=== PATIENT | female | born 1965 | race Caucasian/White ===

== ENCOUNTER → 2017-11-20 | Outpatient (REF) | payer MEDICARE, MEDICAID ==
[2016-10-02 16:16] VITALS: BMI 35.5
[~2017-11-20] MED LIST: ACE325 PO; ACET-2007 PO; ACET-2031 PO; AMA100 PO; AMAN100T4 PO; ASPI-1064 PO; ASPI81TA94 PO; ATOR10TA24 PO; ATOR20TA22 PO; BAC10 PO; BACL-1 PO; BACL-51 PO; BIOT1TAB12 PO; BISA10SU66 PR; CALC-18 PO; CALC-652 PO; CALC500T42 PO; CEFU500T50 PO; CEPH-13 PO; CEPH500C24 PO; CHOL200074 PO; CIP500 PO; CIPR-214 PO; CIPR-215 PO; CIPR-345 PO; CRAN500T2 PO; CYAN100071 SL; DARI15TA5 PO; DEXL60CA6 PO; DIA5 PO; ELETR40PT PO; FING0.5C2 PO; FIO PO; FLU20 PO; GUAI600T57 PO; HYDR-4309 PO; HYDR25CA PO; HYDR2TAB74 PO; IBUP-1618 PO; INT1APT SQ; LEVO-85 PO; LEVO750T27 PO; LEVO750T44 PO; LISI-362 PO; LISI20TA29 PO; LOR5 PO; LOR5/325 PO; LORA-1456 PO; LORA-802 PO; MEDR10TA65 PO; NAPR220C12 PO; NAT300I IV; OXYB10TA21 PO; OXYC-865 PO; PANT40TA65 PO; POTA20TA94 PO; SERT-177 PO; SERT-184 PO; SUMA50TA35 PO; TOLT2TAB5 PO; TRIA-20 PO; TRIA1CAP86 PO; VER40 PO; WARF-12 PO; [UNRECOGNIZED DRUG - CODE] IT; [UNRECOGNIZED DRUG - OTHER]; [UNRECOGNIZED DRUG - OTHER] SC
== END ==
LOC: ZZSENDIN 22:01
PROVIDERS: ATTEND Psychiatry & Neurology Neurology
DX: R79.89 Other specified abnormal findings of blood chemistry (principal)
CPT/HCPCS: 82040; 82247; 82248; 84075; 84155; 84450; 84460

== ENCOUNTER → 2017-12-26 | Outpatient (REF) | payer MEDICARE, MEDICAID ==
[2016-10-02 16:16] VITALS: BMI 35.5
== END ==
LOC: ZZSENDIN 16:31
PROVIDERS: ATTEND Urology
DX: N39.0 Urinary tract infection, site not specified (principal)
CPT/HCPCS: 87088

== ENCOUNTER → 2018-05-29 | Outpatient (REF) | payer MEDICARE, MEDICAID ==
[2016-10-02 16:16] VITALS: BMI 35.5
== END ==
LOC: ZZSENDIN 15:21
PROVIDERS: ATTEND Family Medicine
DX: N39.0 Urinary tract infection, site not specified (principal); B96.89 Other specified bacterial agents as the cause of diseases classified elsewhere
CPT/HCPCS: 81001; 87077; 87088; 87186

== ENCOUNTER → 2018-07-22 | Outpatient (REF) | payer MEDICARE, MEDICAID ==
[2016-10-02 16:16] VITALS: BMI 35.5
[2018-07-22 10:35] LABS: PLATELET COUNT, AUTOMATED 182 K/uL (150-450)
== END ==
LOC: ZZSENDIN 09:44
PROVIDERS: ATTEND Psychiatry & Neurology Neurology
DX: G35 Multiple sclerosis (principal); Z79.899 Other long term (current) drug therapy
CPT/HCPCS: 82040; 82247; 82310; 82374; 82435; 82565; 82947; 84075; 84132; 84155; 84295; 84450; 84460; 84520; 85025

== ENCOUNTER → 2018-12-22 | Outpatient (CLI) | payer MEDICARE, MEDICAID ==
[2016-10-02 16:16] VITALS: BMI 35.5
[~2018-12-22] MED LIST changes: -HYDR-4309 PO; +HYDR-653 PO
--- NOTE | 2018-12-22 11:29 | RADIOLOGY IMAGING REPORT ---
FACILITY: [facility] - [place] PATIENT NAME: Anne Penn : 1965 MR: [id number] V: [id number] EXAM DATE: ORDERING PHYSICIAN: EVENS DAO TECHNOLOGIST: Location: [facility] [place] Patient: Anne Penn : 1965 Visit/Account:[id number] Date of Sevice: 12/22/2018 KIDNEYS HISTORY: History of UTI COMPARISON: None. FINDINGS: Kidneys: Right kidney- 10.17 cm in length with normal parenchymal thickness and echogenicity. Left kidney- 7.97 cm in length with a 2.6 cm simple cyst in the upper pole. There is no suspicious m ass or hydronephrosis.. Normal resistive indices are seen bilaterally. Uniform and symmetric blood flow in each kidney by Doppler ultrasound. Hydronephrosis: None. Bladder: Unremarkable. Abdominal aorta and IVC: Patent by Doppler ultrasound. IMPRESSION: Normal right and left renal ultrasound. Report Dictated By: Derick Merlos at 12/22/2018 11:22 AM Report E-Signed By: Derick Merlos at 12/22/2018 11:24 AM WSN:[id number]
== END ==
LOC: US 01:08
PROVIDERS: ATTEND Urology
DX: N31.9 Neuromuscular dysfunction of bladder, unspecified (principal); Z87.440 Personal history of urinary (tract) infections
CPT/HCPCS: 36415; 76705; 82565

== ENCOUNTER 2019-01-01 21:15 | Inpatient (IN) | payer MEDICARE, MEDICAID ==
[~2019-01-01] VITALS: Ht 152.4 cm; Wt 95.3 kg
[~2019-01-01 21:15] MED LIST changes: -BACL50AM IT; -GUAI1TBM PO; -MICO1COM TP; -OXYB15TA14 PO; -SUMA50TA34 PO; -TRAM-420 PO; -TRIA-19 PO; -[UNRECOGNIZED DRUG - CODE] PO; -[UNRECOGNIZED DRUG - OTHER] PR
--- NOTE | 2019-01-01 21:19 | ER Report ---
History and Physical Time Seen By MD: 21:16 HPI/ROS CHIEF COMPLAINT: Altered mental status, fever HISTORY OF PRESENT ILLNESS: 53-year-old female with a history of MS and a chronic indwelling Quiroz catheter was brought in by EMS from home with a home care nurse found her altered with a fever. She did not recognize the home care nurse who knows her. Patient was seen in wound care clinic and Dr. De La Cruz yesterday for infected. Pressure sores on her buttocks area. Patient was noted to be hypoxic by EMS with a pulse ox of 84% on room air. She required 4 L to maintain saturations in the normal range. Her mouth appears grossly dry. Patie nt appears to responding appropriately now. Patient states he has pressure sores on her buttocks. She was rolled over to visualize the area. There are dressings intact with purulent foul-smelling drainage. Dr. De La Cruz's note from yesterday was reviewed. He did anticipate trying to admit her. Unfortunately, the hospital was a capacity. She was to return tomorrow for reevaluation and consideration of admission. REVIEW OF SYSTEMS: Respiratory: As above Cardiovascular: No chest pain, no palpitations. Gastrointestinal: No vomiting, no abdominal pain. Musculoskeletal: As above Allergies: Coded Allergies: latex (Verified Allergy, Intermediate, HIVES, 01/01/19) Home Meds Active Scripts Sertraline Hcl (SERTRALINE HCL) 50 Mg Tablet, 150 MG PO QDAY, #90 TAB Prov:PASHA CRISTINA MD 03/19/16 Triamterene/Hydrochlorothiazid (TRIAMTERENE-HCTZ 37.5-25 MG TB) 1 Each Tablet, 1 EACH PO QDAY, #30 TAB Prov:PASHA CRISTINA MD 03/19/16 Lisinopril (LISINOPRIL) 10 Mg Tablet, 10 MG PO QDAY, #30 TAB Prov:PASHA CRISTINA MD 03/19/16 Fingolimod (GILENYA) 0.5 Mg Cap, 0.5 MG PO QDAY, #30 CAP Prov:PASHA CRISTINA MD 02/29/16 Loratadine (CLARITIN) 10 Mg Tablet, 10 MG PO DAILY, #30 TAB Prov:PASHA CRISTINA MD 02/29/16 Cholecalciferol (Vitamin D3) (VITAMIN D-3) 2,000 Unit Capsule, 2000 UNIT PO DAILY, #30 CAPSULE Prov:PASHA CRISTINA MD 02/29/16 Cranberry Extract (Cranberry) 500 Mg Tablet, 1000 MG PO DAILY, #60 TAB Prov:PASHA CRISTINA MD 02/29/16 Reported Medications Tramadol Hcl (TRAMADOL HCL) 50 Mg Tablet, 50 MG PO Q6H PRN for PAIN, TAB 01/02/19 Dexlansoprazole (DEXILANT) 60 Mg Dilan.mp, 60 MG PO QDAY 01/02/19 Miconazole/Cleanser 17 On Wipe (Miconazole 3 Combo Pack) 4 % (200 Mg)-2 % (9 Gram) Kit, 1 MARLENA TP BID PRN for RASH 01/02/19 Baclofen (LIORESAL INTRATHECAL) 50 Mcg/1 Ml Ampul, 39.81 MCG IT QDAY 01/02/19 Docusate Sodium (ENEMEEZ) 283 Mg Supp, 283 MG [place] Mon,Wed,Sat, SUPP 01/02/19 Guaifenesin/Dextromethorphan (MUCINEX DM ER 1,200-60 MG TAB) 1 Each Tbmp.12hr, 1 EACH PO Q12H 01/02/19 Sumatriptan Succinate (IMITREX) 50 Mg Tablet, 50 MG PO Q2H PRN for MIGRAINE 01/02/19 Polyethylene Glycol 1450 (POLYETHYLENE GLYCOL 1450) 10,000 Gm Powder, 17 GM PO QDAY 01/02/19 Oxybutynin Chloride (OXYBUTYNIN CHLORIDE ER) 15 Mg Tab.er.24, 15 MG PO QDAY, TAB.SA 01/02/19 Baclofen (BACLOFEN) 10 Mg Tablet, 30 MG PO TID, #30 TAB 01/02/19 Atorvastatin Calcium (LIPITOR) 20 Mg Tablet, 1 TAB PO QHS, TAB 01/02/19 Discontinued Reported Medications Triamterene/Hydrochlorothiazid (MAXZIDE 37.5 MG-25 MG TABLET) 1 Each Tablet, 1 EACH PO QDAY 01/02/19 Oxybutynin Chloride (DITROPAN XL) 10 Mg Tab.er.24, 20 MG PO QHS, TAB 03/13/16 Guaifenesin (MUCINEX) 600 Mg Tablet.er, 600 MG PO BID 03/13/16 Baclofen (Lioresal Intrathecal) 500 Mcg/Ml/Kit Kit, 300 MCG IT PT ON BACLOFEN PUMP 11/20/10 Discontinued Scripts Levofloxacin 750 Mg Tab (LEVOFLOXACIN 750 MG TAB) 750 Mg Tablet, 750 MG PO QDAY@10, #2 TAB Prov:PASHA CRISTINA MD 10/08/16 Pantoprazole Sodium (PANTOPRAZOLE SODIUM) 40 Mg Tablet.dr, 40 MG PO QDAY, #30 TAB Prov:PASHA CRISTINA MD 03/19/16 Bisacodyl (BISAC-EVAC) 10 Mg Supp.rect, 10 MG [place] PRN PRN for CONSTIPATION, #30 SUPP.RECT Prov:PASHA CRISTINA MD 03/19/16 Baclofen (BACLOFEN) 10 Mg Tablet, 30 MG PO TID PRN for muscle spasm, #90 TAB Prov:PASHA CRISTINA MD 03/19/16 Atorvastatin Calcium (LIPITOR) 10 Mg Tablet, 20 MG PO QHS, #30 TAB Prov:PASHA CRISTINA MD 03/19/16 Past Medical/Surgical History Multiple sclerosis, suprapubic catheter, admission in 2015 for urinary tract in fection and aspiration pneumonia, hypertension. Past surgical history suprapubic catheter Reviewed Nurses Notes: Yes Old Medical Records Reviewed: Yes Hx Smoking: Yes Smoking Status: Former Smoker Exposure to Second Hand Smoke?: No Hx Substance Use Disorder: No Hx Alcohol Use: No Constitutional Vital Sign - Last 24 Hours 01/01/19 01/01/19 01/01/19 01/01/19 21:18 21:22 21:30 21:38 Temp 99.2 Pulse 103 104 Resp 20 18 B/P (MAP) 104/64 104/64 (77) 107/59 (75) Pulse Ox 90 89 O2 Delivery Nasal Cannula 01/01/19 01/01/19 01/01/19 01/01/19 21:45 21:50 22:00 22:05 Pulse 103 102 97 Resp 8 29 26 B/P (MAP) 103/57 (72) Pulse Ox 91 92 93 O2 Flow Rate 5.0 01/01/19 01/01/19 01/01/19 01/01/19 22:20 22:30 22:35 22:50 Pulse 97 97 96 Resp 15 25 20 B/P (MAP) 95/48 (64) Pulse Ox 95 94 94 2/2801/01/19 01/01/19 01/01/19 22:55 23:00 23:10 23:25 Pulse 97 95 97 Resp 25 24 27 B/P (MAP) 91/48 (62) Pulse Ox 96 93 92 Physical Exam General Appearance: The patient is alert, has no immediate need for airway protection and no current signs of toxicity. Vital signs stable, low-grade fever 99.0 HEENT: Pupils equal and round no injection. TMs normal, oropharynx without redness or exudate Respiratory: Chest is non tender, lungs are clear to auscultation. Cardiac: regular rate and rhythm, no murmur Gastrointestinal: Abdomen is soft and non tender, no masses, bowel sounds normal. Musculoskeletal: Neck: Neck is supple and non tender. Extremities have full range of motion and are non tender. Skin: Gross decubitus deep ulcers noted on the buttocks region. DIFFERENTIAL DIAGNOSIS: After history and physical exam differential diagnosis was considered for altered mental status including but not limited to hypog lycemia, infectious process, electrolyte abnormality, head injury and intoxicants, infected decubitus ulcers Cellulitis, pneumonia, aspiration pneumonia Medical Decision Making Data Points Result Diagram: 01/02/19 0645 01/02/19 0540 Laboratory Hematology Test 01/01/19 21:30 01/01/19 21:34 01/01/19 21:45 Urine Color Yellow Urine Clarity Turbid Urine pH 5.0 pH (4.8-9.5) Urine Specific [place] 1.020 Urine Protein 30 mg/dL (NEGATIVE) Urine Glucose (UA) Negative mg/dL (NEGATIVE) Urine Ketones Negative mg/dL (NEGATIVE) Urine Blood Moderate (NEGATIVE) Urine Nitrite Positive (NEGATIVE) Urine Bilirubin Negative (NEGATIVE) Urine Urobilinogen 4.0 mg/dL (0.2-1.9) Urine Leukocyte Esterase Large (NEGATIVE) Urine RBC 5 /HPF (0-2/HPF) Urine WBC 161 /HPF (0-5/HPF) Urine Squamous Epithelial Cells Many /LPF (NONE-FEW) Urine Amorphous Crystals Many /HPF Urine Bacteria Many /HPF (NONE-FEW) Urine Mucus Moderate /HPF (NONE-FEW) Influenza Virus Type A (PCR) Negative (NEGATIVE) Influenza Virus Type B (PCR) Negative (NEGATIVE) Lactate 0.9 mmol/L (0.7-2.1) Chemistry Test 01/01/19 21:30 01/01/19 21:34 01/01/19 21:45 Urine Color Yellow Urine Clarity Turbid Urine pH 5.0 pH (4.8-9.5) Urine Specific [place] 1.020 Urine Protein 30 mg/dL (NEGATIVE) Urine Glucose (UA) Negative mg/dL (NEGATIVE) Urine Ketones Negative mg/dL (NEGATIVE) Urine Blood Moderate (NEGATIVE) Urine Nitrite Positive (NEGATIVE) Urine Bilirubin Negative (NEGATIVE) Urine Urobilinogen 4.0 mg/dL (0.2-1.9) Urine Leukocyte Esterase Large (NEGATIVE) Urine RBC 5 /HPF (0-2/HPF) Urine WBC 161 /HPF (0-5/HPF) Urine Squamous Epithelial Cells Many /LPF (NONE-FEW) Urine Amorphous Crystals Many /HPF Urine Bacteria Many /HPF (NONE-FEW) Urine Mucus Moderate /HPF (NONE-FEW) Influenza Virus Type A (PCR) Negative (NEGATIVE) Influenza Virus Type B (PCR) Negative (NEGATIVE) Lactate 0.9 mmol/L (0.7-2.1) Urinalysis Test 01/01/19 21:30 Urine Color Yellow Urine Clarity Turbid Urine pH 5.0 pH (4.8-9.5) Urine Specific [place] 1.020 Urine Protein 30 mg/dL (NEGATIVE) Urine Glucose (UA) Negative mg/dL (NEGATIVE) Urine Ketones Negative mg/dL (NEGATIVE) Urine Blood Moderate (NEGATIVE) Urine Nitrite Positive (NEGATIVE) Urine Bilirubin Negative (NEGATIVE) Urine Urobilinogen 4.0 mg/dL (0.2-1.9) Urine Leukocyte Esterase Large (NEGATIVE) Urine RBC 5 /HPF (0-2/HPF) Urine WBC 161 /HPF (0-5/HPF) Urine Squamous Epithelial Cells Many /LPF (NONE-FEW) Urine Amorphous Crystals Many /HPF Urine Bacteria Many /HPF (NONE-FEW) Urine Mucus Moderate /HPF (NONE-FEW) Microbiology Microbiology Date/Time Source Procedure Growth Status 01/01/19 22:39 Blood Peripheral Draw Blood Culture - Preliminary NO GROWTH AFTER 1 DAY, REINCUBATED Resulted 01/01/19 21:45 Blood Peripheral Draw Blood Culture - Preliminary NO GROWTH AFTER 1 DAY, REINCUBATED Resulted 01/01/19 21:30 Quiroz Catheter Urine Urine Culture - Preliminary Gram Negative Cheikh Resulted EKG/Imaging EKG Interpretation 12 lead EK Rhythm: Sinus tachycardia, rate 103 [place]: normal QRS: normal ST segments: normal, comparison to previous EKG dated 10/01/16, no significant change Imaging X-ray: Angle view portable chest x-ray was obtained. I viewed the images myself on the PACS system. My interpretation of the images is: There is a hazy faint right lower lobe infiltrate. Comparison to previous chest x-ray from 2016. There was no previous scarring or infiltrate noted.. The radiologist interpretation had no clinically significant variation from this interpretation. ED Course/Re-evaluation Clinical Indication for ER IV: Hydration, IV Access ED Course Patient was admitted to an examination room. H&P was done. The differential diagnoses was considered. Patient with infected decubitus ulcers. Patient also with a infiltrate in the right lower lobe and mild hypoxia. Patient with mental status changes secondary to the hypoxia. She improved with oxygenation. On arrival she was alert and oriented 3. Patient's white blood cell count was mildly elevated 12,000. There was a left shift on the differential. 01/01/2019 10:57:[address] Nair. Gen. Surgery on-call, who accepts patient for admission and initiation of IV anabolic therapy. Decision to Disposition Date: Jan 01, 2019 Decision to Disposition Time: 22:50 Depart Departure Latest Vital Signs Vital Signs Date Time Temp Pulse Resp B/P (MAP) Pulse Ox O2 Delivery O2 Flow Rate FiO2 01/01/19 23:25 97 27 92 01/01/19 23:00 91/48 (62) 01/01/19 21:50 5.0 01/01/19 21:18 99.2 Nasal Cannula Impression: Primary Impression: Infected decubitus ulcer Additional Impressions: Multiple sclerosis Right lower lobe pneumonia Condition: Improved Disposition: Admitted from ER Referrals: SHRUTHI PRESTON DO (PCP) Problem Qualifiers Primary Impression: Infected decubitus ulcer Pressure injury stage: stage 2 Qualified Codes: L89.92 - Pressure ulcer of unspecified site, stage 2; L08.9 - Local infection of the skin and sub cutaneous tissue, unspecified Additional Impressions: Right lower lobe pneumonia Pneumonia type: due to unspecified organism Qualified Codes: J18.1 - Lobar pneumonia, unspecified organism SAROJ VARGAS DO Jan 01, 2019 21:18
[2019-01-01] MEDS ORDERED: NS(*) 0.9% 1000 ML BAG 1,000 ML IV ONE (21:20)
--- NOTE | 2019-01-01 21:50 | EKG ---
FACILITY: [facility] - [place] PATIENT NAME: SINCERE SOTOMAYOR : [id number] MR: [id number] V: [id number] EXAM DATE: ORDERING PHYSICIAN: SAROJ VARGAS TECHNOLOGIST: ISAI Javier Reason : Blood Pressure : / mmHG Vent. Rate : 103 BPM Atrial Rate : 103 BPM P-R Int : 136 ms QRS Dur : 078 ms QT Int : 336 ms P-R-T Axes : 059 038 067 degrees QTc Int : 440 ms Sinus tachycardia Otherwise normal ECG When compared with ECG of 01-OCT-2016 16:51, Criteria for Inferior infarct are no longer present Confirmed by REENA CHUA ([id number]) on 01/02/2019 6:35:20 AM Referred By: Confirmed By:REENA CHUA
[2019-01-01 22:02] LABS: PLATELET COUNT, AUTOMATED 234 K/uL (150-450)
--- NOTE | 2019-01-01 22:15 | RADIOLOGY IMAGING REPORT ---
FACILITY: [facility] - [place] PATIENT NAME: Anne Penn : 1965 MR: [id number] V: [id number] EXAM DATE: ORDERING PHYSICIAN: SAROJ VARGAS TECHNOLOGIST: Location: [facility] Patient: Anne Penn : 1965 Visit/Account:[id number] Date of Sevice: 01/01/2019 CHEST SINGLE AP Indication: Fever.. Comparison: 10/07/2016. Findings: Cardiomediastinal silhouette and pulmonary vessels within normal limits. Mild hazy opacity seen in the right lower lobe above the right hemidiaphragm. Mild scarring again see n in the left lower lobe. The remaining lung champion are clear. No pneumothorax or pleural effusion. No nodule. Upper abdomen is unremarkable. No acute bony abnormality. IMPRESSION: 1. Mild hazy opacity seen in the right lower lobe could be secondary to atelectasis or early infiltra te. Report Dictated By: Salvador Restrepo at 01/01/2019 10:09 PM Report E-Signed By: Salvador Restrepo at 01/01/2019 10:11 PM WSN:[id number]
[2019-01-01 23:58] VITALS: BP 105/53
[2019-01-02] MEDS ORDERED: LR(*) 1000 ML BAG 1,000 ML IV PRN (00:13)
[2019-01-02] MEDS ORDERED: ONDANSETRON 4 MG/2 ML VIAL IVP PRN (00:15)
[2019-01-02] MEDS ORDERED: PIPERACILLIN/TAZO*3.375GM VIAL 3.375 GM ONE (00:29)
[2019-01-02] MEDS ORDERED: VANCOMYCIN 1 GM ADDVIAL ONE ×2 (00:29→01:18)
[2019-01-02] MEDS ORDERED: NS(*) 0.9% 100 ML ADDVANT BAG 100 ML ONE (00:30)
[2019-01-02] MEDS ORDERED: NS(*) 0.9% 250 ML ADDVAN BAG 250 ML ONE ×2 (00:30→01:18)
[2019-01-02] MEDS ORDERED: NS 0.9% IV ONE (01:50)
[2019-01-02] MEDS ORDERED: VANCOMYCIN IV ONE (01:50)
[2019-01-02] MEDS ORDERED: VANCOMYCIN 1 GM VIAL IVPB ONE (02:00)
[2019-01-02] MEDS ORDERED: PIPERACILLIN/TAZO*3.375GM VIAL 3.375 GM in NS(*) 0.9% 100 ML ADDVANT BAG 100 ML IVPB SCH ×4 (03:00→09:00)
[2019-01-02 03:14] VITALS: BP 104/45
[2019-01-02] MEDS: ALBUTEROL/IPRATROPIUM 3 ML NEB NEB SCH ×3 (05:16→18:18)
[2019-01-02 07:10] LABS: PLATELET COUNT, AUTOMATED 173 K/uL (150-450)
[2019-01-02 08:08] VITALS: BP 95/49
[2019-01-02] MEDS ORDERED: FLUSH 10 ML SYR IVP PRN (08:55)
[2019-01-02] MEDS ORDERED: BISACODYL 5 MG TABEC PO PRN (08:55)
[2019-01-02] MEDS ORDERED: VANCOMYCIN 1 GM VIAL IVPB SCH ×2 (09:00→12:00)
[2019-01-02] MEDS: CRANBERRY EXTRACT 1 EACH CAP 1 EACH CAP PO SCH (09:00)
[2019-01-02] MEDS: FINGOLIMOD 0.5 MG PO SCH ×2 (09:00→22:08)
[2019-01-02] MEDS: IMIPENEM/CILASTA(*) 500MG VIAL 400 MG in NS(*) 0.9% 100 ML BAG 100 ML IVPB SCH ×3 (09:28→22:07)
[2019-01-02 09:44] VITALS: Ht 152.4 cm; Wt 95.3 kg
[2019-01-02] MEDS ORDERED: MICO1COM TP (10:27)
[2019-01-02] MEDS ORDERED: SUMA50TA34 PO (10:27)
[2019-01-02] MEDS ORDERED: ATOR20TA22 PO (10:27)
[2019-01-02] MEDS ORDERED: [UNRECOGNIZED DRUG - CODE] PO (10:27)
[2019-01-02] MEDS ORDERED: OXYB15TA14 PO (10:27)
[2019-01-02] MEDS ORDERED: BACL-1 PO (10:27)
[2019-01-02] MEDS ORDERED: BACL50AM IT (10:27)
[2019-01-02] MEDS ORDERED: GUAI1TBM PO (10:27)
[2019-01-02] MEDS ORDERED: DEXL60CA6 PO (10:27)
[2019-01-02] MEDS ORDERED: TRIA-19 PO (10:27)
[2019-01-02] MEDS ORDERED: [UNRECOGNIZED DRUG - OTHER] PR (10:27)
[2019-01-02] MEDS: PANTOPRAZOLE SOD 40 MG TABEC PO SCH (10:28)
[2019-01-02] MEDS: LORATADINE 10 MG TAB PO SCH (10:28)
[2019-01-02] MEDS: NYSTATIN 100,000 U/GM PWD 15GM TP SCH ×2 (10:28→22:09)
[2019-01-02] MEDS: guaiFENesin 600 MG TABCR PO SCH ×2 (10:28→22:07)
[2019-01-02] MEDS: TRIAMTERENE/HCTZ 37.5-25MG CAPSULE PO SCH (10:28)
[2019-01-02] MEDS: CHOLECALCIFEROL 1000 UNIT TAB PO SCH (10:31)
[2019-01-02] MEDS: ENOXAPARIN 40 MG/0.4ML SYR SC SCH (10:32)
[2019-01-02] MEDS: SERTRALINE HCL 50 MG TAB PO SCH (10:32)
[2019-01-02 10:34] VITALS: BP 101/50
[2019-01-02] MEDS: LISINOPRIL 10 MG TAB PO SCH (10:34)
--- NOTE | 2019-01-02 11:56 | Medical Nutrition Therapy ---
Nutrition Anthropometrics Height (Inches): 60.00 Height (Calculated Centimeters: 152.483397 Weight (Pounds): 210 Weight (Calculated Kilograms): 95.481 Brandon Nutrition Score: Probably Inadequate Brandon Nutrition Risk Score: 12 Dietary Referral Nutrition Risk Factors: Stg 2-4 Press Ulcer, Non-Healing Wound Nutrition Risk Comment: Physical Findings Physical Appearance: Morbidly Obese 40+ Skin Appearance Skin Appearance: Edema Edema Location Modifier: Edema Location: Type of Edema: Degree of Edema: Gastrointestinal Symptoms GI Symtoms: Tube Present: Bowel Sounds: Recent Bowel Pattern: Stool Characteristics: Nutritional Diagnosis Nutritional Risk Acuity 2: Abcess/Non-Healing Wound Nutritional Risk Acuity 3: Morbid Obesity Past Medical History: HX of Recurrent UTI, Multiple sclerosis, Neurogenic bladder, Suprapubic catheter, HTN, depression, hypercholesterolemia, chronic pressure sore Nutritional Acuity: 2-Moderate Nutrition Diagnosis: Increased Nutrient Needs Nutrition Etiology: Physiological Causes Nutrition Problem/Etiology/Sym: Increased nutrient needs physiological causes as evidenced by non-healing wounds and decreased protein (5.8) lab values. Energy Requirement: 2104 (MSJ, 1.1 TEF, 1.3 AF) Adjusted Energy Requirement Re: 1854 (-250 kcal for wt loss.) Protein Requirement: 95 (1 g AA/ kg of BW) Fluid Requirement: 2104 (1 ml/kcal) Diet Type: Diet as Tolerated LAUREN/REG Nutrition Intervention: Cont diet as ordered, Encourage intake Drug: Diuretics Diet Comment To RSA: Put protein powder in appropriate foods. Recommend high protein foods. Nutrition Monitoring & Eval Nutrition Goals: Eat 50-100% Meal Nutritional Goals Comment: Recommed high AA foods. RD Patient Assessment Time: [address] Assessment Type: RD Screen Patient Nutrition Acuity: 2-Moderate Follow Up Date: Jan 07, 2019 Nutritional Comment: 01/02: Pt admitted for altered mental status and fever. Pt was seen 12/31 for pressure sores. Pt has a hx of MS and chronic indwelling yang catheter. Pt has decreased creatinine (0.50), protein (5.8) and albumin (3.3) levels. Pt has increased AST and ALT levels. Pt is currently taking triamerene (diuretic) and enoxaparin (anti-coagulant). Pt is on a LAUREN diet. -RUTH ALEX Jan 02, 2019 09:57
[2019-01-02] MEDS ORDERED: TRAM-420 PO (13:11)
[2019-01-02] MEDS ORDERED: NS 0.9% IV SCH (14:00)
[2019-01-02] MEDS ORDERED: VANCOMYCIN IV SCH (14:00)
[2019-01-02] MEDS: [UNRECOGNIZED DRUG - OTHER] IV SCH (14:07)
[2019-01-02] MEDS: VANCOMYCIN IV SCH (14:07)
[2019-01-02] MEDS: BACLOFEN 10 MG TAB PO PRN (14:09)
--- NOTE | 2019-01-02 14:57 | Gen Surgery History & Physical ---
History of Present Illness Chief Complaint Confusion History of Present Illness 53-year-old female, wheelchair bound due to advanced multiple sclerosis, is brought in to the emergency room by EMS after she was observed to have increased confusion by her home health nurse. I saw her in my office 2 days ago for decubitus ulcers on her buttocks and sacral region and wanted to admit her at that time due to the severity of these and the fact that she lives alone here in [place] and is completely wheelchair bound and cannot all ambulate or transfer on her own. She does have home health nursing that comes out daily. She does not know how long these ulcers of been present. I was going to admit her to the hospital to coordinate wound care and long-term inpatient care however at that time there were no inpatient beds available and so we arranged for follow-up which would've been today where I was going to try to admit her however last nig ht she came into the emergency room and Dr. Nair had her admitted to the hospital. This morning she has no complaints and feels like she is mentally more clear. History Problems: (1) Multiple sclerosis Status: Chronic (2) HTN (hypertension) Status: Chronic (3) Neurogenic bladder Status: Chronic (4) Suprapubic catheter Status: Chronic (5) Wheelchair bound Status: Chronic (6) FH: lung cancer (7) FH: COPD (chronic obstructive pulmonary disease) (8) FH: CVA (cerebrovascular accident) Home Meds Active Scripts Sertraline Hcl (SERTRALINE HCL) 50 Mg Tablet, 150 MG PO QDAY, #90 TAB Prov:PASHA CRISTINA MD 03/19/16 Triamterene/Hydrochlorothiazid (TRIAMTERENE-HCTZ 37.5-25 MG TB) 1 Each Tablet, 1 EACH PO QDAY, #30 TAB Prov:PASHA RCISTINA MD 03/19/16 Lisinopril (LISINOPRIL) 10 Mg Tablet, 10 MG PO QDAY, #30 TAB Prov:PASHA CRISTINA MD 03/19/16 Fingolimod (GILENYA) 0.5 Mg Cap, 0.5 MG PO QDAY, #30 CAP Prov:PASHA CRISTINA MD 02/29/16 Loratadine (CLARITIN) 10 Mg Tablet, 10 MG PO DAILY, #30 TAB Prov:PASHA CRISTINA MD 02/29/16 Cholecalciferol (Vitamin D3) (VITAMIN D-3) 2,000 Unit Capsule, 2000 UNIT PO DAILY, #30 CAPSULE Prov:PASHA CRISTINA MD 02/29/16 Cranberry Extract (Cranberry) 500 Mg Tablet, 1000 MG PO DAILY, #60 TAB Prov:PASHA CRISTINA MD 02/29/16 Reported Medications Tramadol Hcl (TRAMADOL HCL) 50 Mg Tablet, 50 MG PO Q6H PRN for PAIN, TAB 01/02/19 Dexlansoprazole (DEXILANT) 60 Mg Dilan.mp, 60 MG PO QDAY 01/02/19 Miconazole/Cleanser 17 On Wipe (Miconazole 3 Combo Pack) 4 % (200 Mg)-2 % (9 Gram) Kit, 1 MARLENA TP BID PRN for RASH 01/02/19 Baclofen (LIORESAL INTRATHECAL) 50 Mcg/1 Ml Ampul, 39.81 MCG IT QDAY 01/02/19 Docusate Sodium (ENEMEEZ) 283 Mg Supp, 283 MG [place] Mon,Wed,Fri, SUPP 01/02/19 Guaifenesin/Dextromethorphan (MUCINEX DM ER 1,200-60 MG TAB) 1 Each Tbmp.12hr, 1 EACH PO Q12H 01/02/19 Sumatriptan Succinate (IMITREX) 50 Mg Tablet, 50 MG PO Q2H PRN for MIGRAINE 01/02/19 Polyethylene Glycol 1450 (POLYETHYLENE GLYCOL 1450) 10,000 Gm Powder, 17 GM PO QDAY 01/02/19 Oxybutynin Chloride (OXYBUTYNIN CHLORIDE ER) 15 Mg Tab.er.24, 15 MG PO QDAY, TAB.SA 01/02/19 Baclofen (BACLOFEN) 10 Mg Tablet, 30 MG PO TID, #30 TAB 01/02/19 Atorvastatin Calcium (LIPITOR) 20 Mg Tablet, 1 TAB PO QHS, TAB 01/02/19 Discontinued Reported Medications Triamterene/Hydrochlorothiazid (MAXZIDE 37.5 MG-25 MG TABLET) 1 Each Tablet, 1 EACH PO QDAY 01/02/19 Oxybutynin Chloride (DITROPAN XL) 10 Mg Tab.er.24, 20 MG PO QHS, TAB 03/13/16 Guaifenesin (MUCINEX) 600 Mg Tablet.er, 600 MG PO BID 03/13/16 Baclofen (Lioresal Intrathecal) 500 Mcg/Ml/Kit Kit, 300 MCG IT PT ON BACLOFEN PUMP 11/20/10 Discontinued Scripts Levofloxacin 750 Mg Tab (LEVOFLOXACIN 750 MG TAB) 750 Mg Tablet, 750 MG PO QDAY@10, #2 TAB Prov:PASHA CRISTINA MD 10/08/16 Pantoprazole Sodium (PANTOPRAZOLE SODIUM) 40 Mg Tablet.dr, 40 MG PO QDAY, #30 TAB Prov:PASHA CRISTINA MD 03/19/16 Bisacodyl (BISAC-EVAC) 10 Mg Supp.rect, 10 MG [place] PRN PRN for CONSTIPATION, #30 SUPP.RECT Prov:PASHA CRISTINA MD 03/19/16 Baclofen (BACLOFEN) 10 Mg Tablet, 30 MG PO TID PRN for muscle spasm, #90 TAB Prov:PASHA CRISTINA MD 03/19/16 Atorvastatin Calcium (LIPITOR) 10 Mg Tablet, 20 MG PO QHS, #30 TAB Prov:PASHA CRISTINA MD 03/19/16 Allergies: Coded Allergies: latex (Verified Allergy, Intermediate, HIVES, 01/01/19) Patient History: FH: COPD (chronic obstructive pulmonary disease) FATHER FH: CVA (cerebrovascular accident) MOTHER FH: lung cancer FATHER Review of Systems All Systems Reviewed/Normal: Yes, Except as Noted Exam General Appearance: Alert, Awake, No Acute Distress, Afebrile Neuro: Other (Baseline neurologic deficits due to MS) Extremities: Warm, Perfused Integumentary: Other (her entire buttocks are discolored purple due to dependent venous congestion from continuous pressure. There are several diffuse areas of stage I breakdown but the worst ulcers are a stage II ulcer in her sacral area at the top of the gluteal cleft that is about 5 cm x 5 cm with exposed underlying adipose. The worst ulcer is a 3 x 3 cm ulcer on the lower part of her left buttock that is 4 cm deep and goes down to her ischium although her ischium is covered by a thin layer of soft tissue. There is no obvious erythema although there is quite a bit of serous drainage especially from the stage II and III ulcers.) Psych: Alert & Oriented X3, Appropriate Mood & Affect Medical Decision Making Data Points Result Diagram: 01/02/19 1976 01/02/19 2775 Assessment and Plan Problems: (1) Decubitus ulcer of buttock, stage 3 Status: Chronic Assessment & Plan: 01/02/19: Patient is admitted to the hospital. We'll have her moved to an air mattress and frequently turn her. Will ask the wound care team to consult and will have case management evaluate her for her long-term inpatient placement as well. She is failing continued management at home as evidenced by these advanced decubiti. She requires inpatient intensive wound care as well as staffing to frequently change her positions to avoid pressure in any one area for very long. These will never heal and in fact will get worse if she continues her current course at home. She seems agreeable with this although she does state that she does not want to go to [facility] as she has been there before. We'll relay this to the case management team. (2) Decubitus ulcer of buttock, stage 2 Status: Chronic (3) Multiple sclerosis Status: Chronic (4) Wheelchair bound Status: Chronic Condition Stable Time Spent: < 30 min Venous Thromboembolism VTE Risk Physician Assess for VTE Risk: Yes Patient's VTE Risk: Low VTE Diagnostic Test 2 Days Prior to Admit: No Antithrombotics Is Pt On Any Antithrombotics?: No Problem Qualifiers (1) Decubitus ulcer of buttock, stage 3: Laterality: left Qualified Codes: L89.323 - Pressure ulcer of left buttock, stage 3 (2) Decubitus ulcer of buttock, stage 2: Laterality: unspecified laterality Qualified Codes: L89.302 - Pressure ulcer of unspecified buttock, stage 2 REENA REHMAN MD Jan 02, 2019 14:57
--- NOTE | 2019-01-02 15:40 | NUR ---
Physical Therapy Impression Order to place vac if possible to wounds at L) sacrum and ischium. Currently majority of buttocks is denuded and weeping with unlikely ability to gain vac seal due to drainage. Eval completed and vac area prepared to accept vac if possible tomorrow. Denuded skin treated with zinc based moisture barrier cream and pt to be aggressively off loaded with full R) or L) sidelying to prevent any pressure on buttocks at all and allow for improved air exchange. Pt also transferred to a low air loss alternating air chamber mattress for pressure relief to prevent any further deep tissue injury. PT will re-eval for potential of placement for vac on Saturday if periwound tissue is improved with less weeping/drainage. Physical Therapy Goals Patient's Goals
[2019-01-02] MEDS: MORPHINE 2 MG/ML SYR IVP PRN (15:51)
[2019-01-02] MEDS: traMADol 50 MG TAB PO PRN ×2 (15:51→22:07)
--- NOTE | 2019-01-02 16:14 | Pharmacy Note ---
Vancomycin Management Note Vanco Dosing Note Pharmacy Services Pharmacokinetic Dosing Consult, Vancomycin Pharmacy has been consulted for dosing and monitoring of vancomycin for 53 yo F for possible pneumonia, infection of decubitus ulcers on buttocks. Pertinent Past Medical History: Multiple Sclerosis (W/C bound), suprapubic catheter, aspiration pneumonia, HTN, decubitus ulcers Antibiotics prior to admission; No Additional Antimicrobials: Vancomycin 2g IV x 1, loading dose on 01/02/19 @ 0200 Zosyn 3.375g IV Q6H started on 01/02/19 (received one dose @0300) Current Antibiotics: Vancomycin 1.5 g IV Q12H, started 01/02/19 @1400, Trough ordered for 01/03/19 @1300 Imipenem/cilastatin 400mg IV Q6H, started 01/02/19 @ 0900 (stopped zosyn for p otential risk of ATN with Vanco/Zosyn combo) Patient Information: Height (cm): 152.4cm Actual Body Weight (ABW): 95.5 kg IBW: 45.5 kg Adj BW: 65.5 kg Pertinent Lab Tests WHITE BLOOD COUNT 12.1-->7.7 NEUTROPHILS 90.5% -->88.3% BLOOD UREA NITROGEN [*] SCR 0.5 --> rounded to 0.8 for CrCl calculation (likely low muscle mass with comorbidities) VANCOMYCIN TROUGH---ordered for 01/03/19 @1300 Culture Results: BLOOD x2 - NGTD URINE (+) --> >100,000cfu, growing GNR (has suprapubic catheter...consider colonization), UA--full of squamous epis, consider clinical sx SPUTUM- NA WOUND- NA Assessment: CrCl ~80 ml/min (use adj bw, round Scr 0.8) Renal function is stable Vancomycin Monitoring Assessment Goal Vancomycin Trough Level: 15-20 mcg/mL Plan: 1) Vancomycin 25 mg/kg loading dose (based on ABW): 2g IV x 1 2) Vancomycin maintenance dose (based on ABW): 1.5g IV q12h 3) Vancomycin monitoring: Trough pending on 01/03/19 @1300 Pharmacy will continue to monitor daily and adjust regimen as appropriate. Thank you for the consult. Lupe White, PharmD, BCOP LUPE WHITE Jan 02, 2019 16:14
--- NOTE | 2019-01-02 16:18 | Antimicrobial Stewardship ---
Antimicrobial Stewardship Empiricly appropriate: Yes (Decubitus ulcers, UTI, pneumonia) Significant PMH: Yes (MS, supra pubic cath, hx of aspiration pneumonia, ) Support empiric regimen: Yes (Vancomycin + imipenem/cilastatin) Approriate Cultures done: Yes (Blood and Urine Cx) Gram stain show Microbs: Yes (Urine Cx (+) GNR >100,000cfu) Renal/Hepatic dosing: Yes (CrCL ~80 ml/min --> imipenem dose adjusted) Serum concentration checked: Yes (Goal 15-20 mcg/mL) Comment 01/03/19- Vancomycin Trough pending at 1300 Determine cumulative duration: unknown at this time Determine standard duration: 7-14 days likely with multiple ID diagnoses Comment Please see Vancomycin Note for full details: Potential UTI, decubitus ulcer infection, and potential pneumonia--> all covered by vancomycin and imipenem. Lupe White, PharmD, OP LUPE WHITE Jan 02, 2019 16:18
[2019-01-02 17:06] VITALS: BP 103/53
[2019-01-02] MEDS ORDERED: OXYBUTYNIN CHL XL 5 MG TABCR PO SCH (21:00)
[2019-01-02 22:05] VITALS: BP 95/48
[2019-01-02] MEDS: ATORVASTATIN 10 MG TAB PO SCH (22:07)
[2019-01-02] MEDS: OXYBUTYNIN CHL XL 5 MG TABCR PO SCH (22:07)
[2019-01-03] MEDS: ALBUTEROL/IPRATROPIUM 3 ML NEB NEB SCH ×4 (01:02→18:29)
[2019-01-03] MEDS: VANCOMYCIN IV SCH ×2 (02:15→14:37)
[2019-01-03] MEDS: [UNRECOGNIZED DRUG - OTHER] IV SCH ×2 (02:15→14:37)
[2019-01-03] MEDS: IMIPENEM/CILASTA(*) 500MG VIAL 400 MG in NS(*) 0.9% 100 ML BAG 100 ML IVPB SCH ×4 (03:47→22:52)
[2019-01-03 06:59] VITALS: BP 90/43
[2019-01-03] MEDS: traMADol 50 MG TAB PO PRN ×3 (07:28→21:12)
[2019-01-03] MEDS: CRANBERRY EXTRACT 1 EACH CAP 1 EACH CAP PO SCH (09:00)
[2019-01-03] MEDS: LISINOPRIL 10 MG TAB PO SCH ×2 (09:00→09:36)
[2019-01-03] MEDS: TRIAMTERENE/HCTZ 37.5-25MG CAPSULE PO SCH ×2 (09:00→09:37)
[2019-01-03] MEDS: NYSTATIN 100,000 U/GM PWD 15GM TP SCH ×2 (09:35→21:10)
[2019-01-03] MEDS: SERTRALINE HCL 50 MG TAB PO SCH (09:35)
[2019-01-03] MEDS: LORATADINE 10 MG TAB PO SCH (09:35)
[2019-01-03] MEDS: CHOLECALCIFEROL 1000 UNIT TAB PO SCH (09:35)
[2019-01-03] MEDS: POLYETHYLENE GLYCOL 17 GM PKT PO SCH (09:36)
[2019-01-03] MEDS: guaiFENesin 600 MG TABCR PO SCH ×2 (09:36→21:10)
[2019-01-03] MEDS: PANTOPRAZOLE SOD 40 MG TABEC PO SCH (09:36)
[2019-01-03] MEDS: FINGOLIMOD 0.5 MG PO SCH (09:37)
[2019-01-03] MEDS: ENOXAPARIN 40 MG/0.4ML SYR SC SCH (09:37)
[2019-01-03 10:05] VITALS: BP 89/49
[2019-01-03] MEDS: MORPHINE 2 MG/ML SYR IVP PRN ×3 (11:04→23:53)
--- NOTE | 2019-01-03 12:30 | NUR ---
Physical Therapy Impression Measurements for all areas remain the same as yesterday's assessment. Periwound skin has improved with decreased weeping. Skin treated with skin prep and stoma powder to address tackiness to allow for improved seal with wound vac drape. [place] skin prep also applied directly to L) ischium and L) superior buttock/sacrum wound sites to encourage more secure seal as well. Black granufoam sponge placed in contact with depth of L) ischial wound and then bridged to upper wound along area of currently open skin. Good seal obtain with drape and trac pad placed in contact with black granufoam slightly laterally of L) ischial wound. Suction setting at 125mmHg, continuous with high intensity to gain efficient seal. Physical Therapy Goals Patient's Goals
[2019-01-03 13:31] LABS: PLATELET COUNT, AUTOMATED 192 K/uL (150-450)
[2019-01-03 13:34] VITALS: BP 92/48
--- NOTE | 2019-01-03 14:53 | General Surgery Progress Note ---
Subjective Progress Notes Subjective no acute events. c/o pain where wounds are. Physical Exam Vital Signs Date Time Temp Pulse Resp B/P (MAP) Pulse Ox O2 Delivery O2 Flow Rate FiO2 01/03/19 13:34 97.9 94 18 92/48 (63) 96 Nasal Cannula 2.5 Intake and Output 01/03/19 06:59 Intake Total 1571 ml Output Total 2015 ml Balance -444 ml Intake Oral 470 ml IV Total 1101 ml Output Urine Total 2015 ml General Appearance: No Acute Distress Cardiovascular: Other (reg rate) Integumentary: Other (mult sacral decub wounds. deepest is on the left with some nonviable tissue deep in wound. ) Result Diagram: 01/03/19 1318 01/03/19 0530 Assessment and Plan Problems: (1) Decubitus ulcer of buttock, stage 3 Status: Chronic Assessment & Plan: 01/02/19: Patient is admitted to the hospital. We'll have her moved to an air mattress and frequently turn her. Will ask the wound care team to consult and will have case management evaluate her for her long-term inpatient placement as well. She is failing continued management at home as evidenced by these advanced decubiti. She requires inpatient intensive wound care as well as staffing to frequently change her positions to avoid pressure in any one area for very long. These will never heal and in fact will get worse if she continues her current course at home. She seems agreeable with this although she does state that she does not want to go to [facility] as she has been there before. We'll relay this to the case management team. 01/03/19: cont abx. wound vac being placed. some debridement needed in at least one of the wounds. will attempt to do this at bedside, wound vac. (2) Decubitus ulcer of buttock, stage 2 Status: Chronic (3) Multiple sclerosis Status: Chronic (4) Wheelchair bound Status: Chronic Exam Sepsis Risk: No Definite Risk Problem Qualifiers (1) Decubitus ulcer of buttock, stage 3: Laterality: left Qualified Codes: L89.323 - Pressure ulcer of left buttock, stage 3 (2) Decubitus ulcer of buttock, stage 2: Laterality: unspecified laterality Qualified Codes: L89.302 - Pressure ulcer of unspecified buttock, stage 2 MONIKA CAPONE Jan 03, 2019 14:53
--- NOTE | 2019-01-03 14:54 | Pharmacy Note ---
Vancomycin Management Note Vanco Dosing Note Patient is on vancomycin for possible pneumonia, infection of decubitus ulcers on buttocks, pharmacy monitoring and adjusting doses. Antimicrobials: Vancomycin 1500 mg every 12 hours, Day 2 Primaxin 400 mg IV Q6h Day 2 Pertinent Lab Tests WHITE BLOOD COUNT 12.1-->7.7--> 6.5 NEUTROPHILS 90.5%-->88.3%-->87.1% SCR 0.5-->rounded to 0.8 for CrCl calc VANCOMYCIN TROUGH 01/03/19 18.63 Culture Results: BLOOD x 2 NGTD URINE growing Pseudomonas Aeruginosa (sensitive to Primaxin) SPUTUM n/a WOUND n/a Assessment: CrCl ~80 ml/min (using adjbw, round Scr 0.8) Renal function is stable Vancomycin Monitoring Assessment: Goal Vancomycin Trough Level: 15-20 mcg/ml Plan: 1) Vancomycin dose: continue 1500 mg every 12 hours 2) Vancomycin monitoring: A level is ordered for 01/04/19 at 1300. Pharmacy will continue to monitor daily and adjust regimen as appropriate. MARSHALL WESTBROOK Jan 03, 2019 14:54
[2019-01-03 16:32] VITALS: BP 94/40
[2019-01-03 19:11] VITALS: BP 102/52
[2019-01-03] MEDS: ATORVASTATIN 10 MG TAB PO SCH (21:10)
[2019-01-03] MEDS: OXYBUTYNIN CHL XL 5 MG TABCR PO SCH (21:10)
[2019-01-03 23:30] VITALS: BP 97/53
[2019-01-04] MEDS: ALBUTEROL/IPRATROPIUM 3 ML NEB NEB SCH ×5 (00:30→22:22)
[2019-01-04] MEDS: VANCOMYCIN IV SCH (01:52)
[2019-01-04] MEDS: [UNRECOGNIZED DRUG - OTHER] IV SCH (01:52)
[2019-01-04] MEDS: traMADol 50 MG TAB PO PRN ×4 (03:09→22:01)
[2019-01-04 05:00] VITALS: BP 96/53
[2019-01-04] MEDS: IMIPENEM/CILASTA(*) 500MG VIAL 400 MG in NS(*) 0.9% 100 ML BAG 100 ML IVPB SCH ×4 (05:05→23:04)
[2019-01-04 06:58] VITALS: BP 97/54
[2019-01-04] MEDS: TRIAMTERENE/HCTZ 37.5-25MG CAPSULE PO SCH (09:00)
[2019-01-04] MEDS: LISINOPRIL 10 MG TAB PO SCH (09:00)
[2019-01-04] MEDS: CRANBERRY EXTRACT 1 EACH CAP 1 EACH CAP PO SCH (09:00)
--- NOTE | 2019-01-04 09:14 | General Surgery Progress Note ---
Subjective Progress Notes Subjective no acute events. c/o pain from sacral decub ulcers. Physical Exam Vital Signs Date Time Temp Pulse Resp B/P (MAP) Pulse Ox O2 Delivery O2 Flow Rate FiO2 01/04/19 06:58 98.1 98 18 97/54 (68) 94 Nasal Cannula 5.0 Intake and Output 01/04/19 06:59 Intake Total 2300 ml Output Total 1250 ml Balance 1050 ml Intake Oral 1600 ml IV Total 700 ml Output Urine Total 1200 ml Drainage Total 50 ml General Appearance: No Acute Distress Cardiovascular: Other (reg rate) Integumentary: Other (wound vac in place) Result Diagram: 01/03/19 1318 01/03/19 0530 Assessment and Plan Problems: (1) Decubitus ulcer of buttock, stage 3 Status: Chronic Assessment & Plan: 01/02/19: Patient is admitted to the hospital. We'll have her moved to an air mattress and frequently turn her. Will ask the wound care team to consult and will have case management evaluate her for her long-term inpatie nt placement as well. She is failing continued management at home as evidenced by these advanced decubiti. She requires inpatient intensive wound care as well as staffing to frequently change her positions to avoid pressure in any one area for very long. These will never heal and in fact will get worse if she continues her current course at home. She seems agreeable with this although she does sta te that she does not want to go to [facility] as she has been there before. We'll relay this to the case management team. 01/03/19: cont abx. wound vac being placed. some debridement needed in at least one of the wounds. will attempt to do this at bedside, wound vac. 01/04/19: no acute events. cont abx and wound vac. long-term inpt placement soon. (2) Decubitus ulcer of buttock, stage 2 Status: Chronic (3) Multiple sclerosis Status: Chronic (4) Wheelchair bound Status: Chronic Exam Sepsis Risk: No Definite Risk Problem Qualifiers (1) Decubitus ulcer of buttock, stage 3: Laterality: left Qualified Codes: L89.323 - Pressure ulcer of left buttock, stage 3 (2) Decubitus ulcer of buttock, stage 2: Laterality: unspecified laterality Qualified Codes: L89.302 - Pressure ulcer of unspecified buttock, stage 2 MONIKA CAPONE Jan 04, 2019 09:14
[2019-01-04] MEDS: ENOXAPARIN 40 MG/0.4ML SYR SC SCH (09:33)
[2019-01-04] MEDS: guaiFENesin 600 MG TABCR PO SCH ×2 (09:33→21:25)
[2019-01-04] MEDS: LORATADINE 10 MG TAB PO SCH (09:33)
[2019-01-04] MEDS: CHOLECALCIFEROL 1000 UNIT TAB PO SCH (09:34)
[2019-01-04] MEDS: FINGOLIMOD 0.5 MG PO SCH (09:34)
[2019-01-04] MEDS: POLYETHYLENE GLYCOL 17 GM PKT PO SCH (09:34)
[2019-01-04] MEDS: SERTRALINE HCL 50 MG TAB PO SCH (09:34)
[2019-01-04] MEDS: PANTOPRAZOLE SOD 40 MG TABEC PO SCH (09:34)
[2019-01-04] MEDS: NYSTATIN 100,000 U/GM PWD 15GM TP SCH ×2 (09:35→21:26)
[2019-01-04] MEDS: MORPHINE 2 MG/ML SYR IVP PRN (12:29)
[2019-01-04] MEDS: VANCOMYCIN(*) 1 GM VIAL 1 GM, VANCOMYCIN (*) 0.5 GM VIAL 0.25 GM in NS(*) 0.9% 250 ML B... IVPB SCH (14:46)
[2019-01-04 14:47] VITALS: BP 83/42
--- NOTE | 2019-01-04 14:48 | Pharmacy Note ---
Vancomycin Management Note Vanco Dosing Note Vancomycin Management Note Vanco Dosing Note Patient is on vancomycin for possible pneumonia, infection of decubitus ulcers on buttocks, pharmacy monitoring and adjusting doses. Antimicrobials: Vancomycin 1500 mg every 12 hours, Day 3 Primaxin 400 mg IV Q6h Day 3 Pertinent Lab Tests WHITE BLOOD COUNT 12.1-->7.7--> 6.5 NEUTROPHILS 90.5%-->88.3%-->87.1% SCR 0.5-->rounded to 0.8 for CrCl calc VANCOMYCIN TROUGH 01/03/19 18.63 --> 23.64 Culture Results: BLOOD x 2 NGTD URINE growing Pseudomonas Aeruginosa (sensitive to Primaxin) SPUTUM n/a WOUND n/a Assessment: CrCl ~80 ml/min (using adjbw, round Scr 0.8) Renal function is stable Vancomycin Monitoring Assessment: Goal Vancomycin Trough Level: 15-20 mcg/ml Plan: 1) Vancomycin dose: reduce dose to 1250 mg IV q12h 2) Vancomycin monitoring: A level is ordered for 01/05/19 at 1300. Pharmacy will continue to monitor daily and adjust regimen as appropriate. MARSHALL WESTBROOK Jan 03, 2019 14:54 <Electronically signed by MARSHALL WESTBROOK> D/ [id number] POWER/CHRISTOS CC: MARSHALL WESTBROOK Jan 04, 2019 14:48
[2019-01-04 17:28] VITALS: BP 105/60
[2019-01-04 19:30] VITALS: BP 108/68
[2019-01-04] MEDS: ATORVASTATIN 10 MG TAB PO SCH (21:25)
[2019-01-04] MEDS: OXYBUTYNIN CHL XL 5 MG TABCR PO SCH (21:25)
[2019-01-04] MEDS: BACLOFEN 10 MG TAB PO PRN (22:01)
[2019-01-04 23:24] VITALS: BP 94/37
[2019-01-05] MEDS ORDERED: VANCOMYCIN 1 GM ADDVIAL ONE (02:49)
[2019-01-05] MEDS ORDERED: NS(*) 0.9% 250 ML ADDVAN BAG 250 ML ONE (02:49)
[2019-01-05 03:00] VITALS: BP 91/47
[2019-01-05] MEDS ORDERED: VANCOMYCIN 0.5 GM VIAL ONE (03:03)
[2019-01-05] MEDS ORDERED: WATER STERILE(*) 10 ML VIAL 10 ML ONE (03:03)
[2019-01-05] MEDS: VANCOMYCIN(*) 1 GM VIAL 1 GM, VANCOMYCIN (*) 0.5 GM VIAL 0.25 GM in NS(*) 0.9% 250 ML B... IVPB SCH ×2 (03:12→14:39)
[2019-01-05] MEDS: traMADol 50 MG TAB PO PRN ×3 (04:06→22:06)
[2019-01-05] MEDS: BACLOFEN 10 MG TAB PO PRN ×2 (04:13→22:06)
[2019-01-05] MEDS: IMIPENEM/CILASTA(*) 500MG VIAL 400 MG in NS(*) 0.9% 100 ML BAG 100 ML IVPB SCH ×4 (05:28→22:11)
[2019-01-05] MEDS: ALBUTEROL/IPRATROPIUM 3 ML NEB NEB SCH ×4 (05:49→18:33)
--- NOTE | 2019-01-05 08:29 | General Surgery Progress Note ---
Subjective Progress Notes Subjective No complaints today. Physical Exam Vital Signs Date Time Temp Pulse Resp B/P (MAP) Pulse Ox O2 Delivery O2 Flow Rate FiO2 01/05/19 05:58 94 16 01/05/19 05:49 95 Nasal Cannula 2.0 01/05/19 03:00 91/47 (62) 01/04/19 23:24 98.5 Intake and Output 01/05/19 07:00 Intake Total 1672.5 ml Output Total 975 ml Balance 697.5 ml Intake Oral 1210 ml IV Total 462.5 ml Output Urine Total 975 ml General Appearance: Alert, Awake, No Acute Distress, Afebrile Integumentary: Other (Wound vac in place) Result Diagram: 01/03/19 1318 01/03/19 0530 Assessment and Plan Problems: (1) Decubitus ulcer of buttock, stage 3 Status: Chronic Assessment & Plan: 01/02/19: Patient is admitted to the hospital. We'll have her moved to an air mattress and frequently turn her. Will ask the wound care team to consult and will have case management evaluate her for her long-term inpatient placement as well. She is failing continued management at home as evidenced by these advanced decubiti. She requires inpatient intensive wound care as well as staffing to frequently change her positions to avoid pressure in any one area for very long. These will never heal and in fact will get worse if she continues her current course at home. She seems agreeable with this although she does state that she does not want to go to [facility] as she has been there before. We'll relay this to the case management team. 01/03/19: cont abx. wound vac being placed. some debridement needed in at least one of the wounds. will attempt to do this at bedside, wound vac. 01/04/19: no acute events. cont abx and wound vac. long-term inpt placement soon. 01/05/19: Doing well. Wound vac in place. Will send over to [facility] when they have a wound vac available for her, hopefully today or tomorrow. Continue Abx for 7 more days. (2) Decubitus ulcer of buttock, stage 2 Status: Chronic (3) Multiple sclerosis Status: Chronic (4) Wheelchair bound Status: Chronic Condition Stable. Time Spent: < 30 min Exam Sepsis Risk: No Definite Risk Problem Qualifiers (1) Decubitus ulcer of buttock, stage 3: Laterality: left Qualified Codes: L89.323 - Pressure ulcer of left buttock, stage 3 (2) Decubitus ulcer of buttock, stage 2: Laterality: unspecified laterality Qualified Codes: L89.302 - Pressure ulcer of unspecified buttock, stage 2 REENA REHMAN MD Jan 05, 2019 08:29
[2019-01-05] MEDS: CRANBERRY EXTRACT 1 EACH CAP 1 EACH CAP PO SCH (09:00)
[2019-01-05 09:19] VITALS: BP 116/68
[2019-01-05] MEDS: CHOLECALCIFEROL 1000 UNIT TAB PO SCH (09:50)
[2019-01-05] MEDS: PANTOPRAZOLE SOD 40 MG TABEC PO SCH (09:51)
[2019-01-05] MEDS: guaiFENesin 600 MG TABCR PO SCH ×2 (09:51→22:06)
[2019-01-05] MEDS: POLYETHYLENE GLYCOL 17 GM PKT PO SCH (09:51)
[2019-01-05] MEDS: SERTRALINE HCL 50 MG TAB PO SCH (09:51)
[2019-01-05] MEDS: TRIAMTERENE/HCTZ 37.5-25MG CAPSULE PO SCH (09:51)
[2019-01-05] MEDS: LORATADINE 10 MG TAB PO SCH (09:51)
[2019-01-05] MEDS: FINGOLIMOD 0.5 MG PO SCH (09:51)
[2019-01-05] MEDS: LISINOPRIL 10 MG TAB PO SCH (09:51)
[2019-01-05] MEDS: ENOXAPARIN 40 MG/0.4ML SYR SC SCH (09:52)
[2019-01-05] MEDS: NYSTATIN 100,000 U/GM PWD 15GM TP SCH ×2 (09:52→22:07)
[2019-01-05] MEDS ORDERED: MAGNESIUM HYDROXIDE* 30ML UDCP PO PRN (13:05)
[2019-01-05] MEDS ORDERED: BISACODYL 10 MG SUPP PR ONE (13:12)
[2019-01-05 13:50] VITALS: BP 96/46
--- NOTE | 2019-01-05 17:58 | RADIOLOGY IMAGING REPORT ---
FACILITY: [facility] PATIENT NAME: Anne Penn : 1965 MR: [id number] V: [id number] EXAM DATE: ORDERING PHYSICIAN: REENA REHMAN TECHNOLOGIST: Location: [facility] Patient: Anne Penn : 1965 Visit/Account:[id number] Date of Sevice: 01/05/2019 Exam type: US GUIDANCE VASCULAR ACCESS, PICC LINE INSERTION History: IV abx Comparison: None. Findings: Informed consent was obtained. Patient's left arm was prepped and draped usual sterile fashion. Loc al anesthesia was accomplished with 1% lidocaine. Utilizing both sonographic and fluoroscopic guidan ce a 43 cm long trimmed 4 German single lumen power PICC was inserted via the patent left basilic vei n with the distal tip resting in the superior vena cava. The PICC line was flushed with 5 mL of sali ne flush. The proximal portion PICC line was adhered the patient's arm the sterile dressing. The pr ocedure was without apparent complication. The sonographic images were saved to PACS. The fluorosco py dose area product was 123.30 micro-Leroy per meter squared IMPRESSION: 1. Successful placement of a 43 cm long trimmed 4 German single lumen power PICC inserted via the pa tent left basilic vein with the distal tip resting in superior vena cava Report Dictated By: Lary Vuong MD at 01/05/2019 5:51 PM Report E-Signed By: Lary Vuong MD at 01/05/2019 5:52 PM WSN:[email or web address]
--- NOTE | 2019-01-05 17:58 | RADIOLOGY IMAGING REPORT ---
FACILITY: [facility] PATIENT NAME: Anne Penn : 1965 MR: [id number] V: [id number] EXAM DATE: ORDERING PHYSICIAN: REENA REHMAN TECHNOLOGIST: Location: [facility] [place] Patient: Anne Penn : 1965 Visit/Account:[id number] Date of Sevice: 01/05/2019 Exam type: US GUIDANCE VASCULAR ACCESS, PICC LINE INSERTION History: IV abx Comparison: None. Findings: Informed consent was obtained. Patient's left arm was prepped and draped usual sterile fashion. Loc al anesthesia was accomplished with 1% lidocaine. Utilizing both sonographic and fluoroscopic guidan ce a 43 cm long trimmed 4 [place] single lumen power PICC was inserted via the patent left basilic vei n with the distal tip resting in the superior vena cava. The PICC line was flushed with 5 mL of sali ne flush. The proximal portion PICC line was adhered the patient's arm the sterile dressing. The pr ocedure was without apparent complication. The sonographic images were saved to PACS. The fluorosco py dose area product was 123.30 micro-Leroy per meter squared IMPRESSION: 1. Successful placement of a 43 cm long trimmed 4 [place]ri[place] single lumen power PICC inserted via the pa tent left basilic vein with the distal tip resting in superior vena cava Report Dictated By: Lary Vuong MD at 01/05/2019 5:51 PM Report E-Signed By: Lary Vuong MD at 01/05/2019 5:52 PM WSN:[email or web address]
--- NOTE | 2019-01-05 18:00 | NUR ---
Physical Therapy Impression Measurements remain the same from previous visit. Dr. Phan present to complete debridement of sacral ulcer after pericare completed. PT provided non-excisional selective debridement of ischial ulcer and other areas of non-viable tissue at B) buttocks to a depth of subcutaneous tissue with the use of tweezers. Wounds cleansed with sterile saline and pt noted to be continuing to have some loose stool with repositioning. PT elected to treat wounds conservatively through the night to allow for full evacuation of stool and then re-place wound vac tomorrow morning. Depth of wounds packed gently with silver calcium alginate and covered with layer of qwick absorbant dressing secured with medipore tape to lateral border with healthy skin. Medial side left somewhat open and zinc based moisture barrier cream applied to all other areas of denuded skin to allow for improved dryness and air circulation prior to reapplication of vac potentially tomorrow. Pt to remain in either full R) or full L) sidelying again to off load buttocks as much as possible and allow for greater air exchange to prevent further periwound skin breakdown. Physical Therapy Goals Patient's Goals
[2019-01-05 19:06] VITALS: BP 105/69
[2019-01-05] MEDS: ATORVASTATIN 10 MG TAB PO SCH (22:06)
[2019-01-05] MEDS: OXYBUTYNIN CHL XL 5 MG TABCR PO SCH (22:07)
[2019-01-06] MEDS: VANCOMYCIN(*) 1 GM VIAL 1 GM, VANCOMYCIN (*) 0.5 GM VIAL 0.25 GM in NS(*) 0.9% 250 ML B... IVPB SCH ×2 (02:12→17:53)
[2019-01-06 02:16] VITALS: BP 91/48
[2019-01-06] MEDS ORDERED: NS(*) 0.9% 250 ML BAG 250 ML ONE (04:45)
[2019-01-06] MEDS: IMIPENEM/CILASTA(*) 500MG VIAL 400 MG in NS(*) 0.9% 100 ML BAG 100 ML IVPB SCH (05:03)
[2019-01-06] MEDS: MORPHINE 2 MG/ML SYR IVP PRN ×2 (05:15→17:58)
[2019-01-06] MEDS: ALBUTEROL/IPRATROPIUM 3 ML NEB NEB SCH ×4 (05:20→18:34)
[2019-01-06 06:57] VITALS: BP 89/53
--- NOTE | 2019-01-06 08:56 | General Surgery Progress Note ---
Subjective Progress Notes Subjective No complaints. Physical Exam Vital Signs Date Time Temp Pulse Resp B/P (MAP) Pulse Ox O2 Delivery O2 Flow Rate FiO2 01/06/19 06:57 98.0 83 18 89/53 (65) 92 Nasal Cannula 2.0 Intake and Output 01/06/19 06:59 Intake Total 1678.5 ml Output Total 8825 ml Balance -7146.5 ml Intake Oral 1216 ml IV Total 462.5 ml Output Urine Total 8825 ml # Bowel Movements 2 General Appearance: Alert, Awake, No Acute Distress, Afebrile Extremities: Warm, Perfused Integumentary: Other (Wounds inspected during wound vac change last evening. They are looking much better. Her overall buttock skin is looking much better. I did debride some necrotic tissue from the stage II ulcer. The stage III ulcer is more shallow.) Result Diagram: 01/03/19 1318 01/03/19 0530 Assessment and Plan Problems: (1) Decubitus ulcer of buttock, stage 3 Status: Chronic Assessment & Plan: 01/02/19: Patient is admitted to the hospital. We'll have her moved to an air mattress and frequently turn her. Will ask the wound care team to consult and will have case management evaluate her for her long-term inp atient placement as well. She is failing continued management at home as evidenced by these advanced decubiti. She requires inpatient intensive wound care as well as staffing to frequently change her positions to avoid pressure in any one area for very long. These will never heal and in fact will get worse if she continues her current course at home. She seems agreeable with this although she does state that she does not want to go to [facility] as she has been there before. We'll relay this to the case management team. 01/03/19: cont abx. wound vac being placed. some debridement needed in at least one of the wounds. will attempt to do this at bedside, wound vac. 01/04/19: no acute events. cont abx and wound vac. long-term inpt placement soon. 01/05/19: Doing well. Wound vac in place. Will send over to [facility] when they have a wound vac available for her, hopefully today or tomorrow. Continue Abx for 7 more days. 01/06/19: Doing well. Continue wound vac placement. To [facility] when wound vac available there. Continue abx (switched from imipenum to levaquin) for 6 more days. (2) Decubitus ulcer of buttock, stage 2 Status: Chronic (3) Multiple sclerosis Status: Chronic (4) Wheelchair bound Status: Chronic Condition Stable. Time Spent: < 30 min Exam Sepsis Risk: No Definite Risk Problem Qualifiers (1) Decubitus ulcer of buttock, stage 3: Laterality: left Qualified Codes: L89.323 - Pressure ulcer of left buttock, stage 3 (2) Decubitus ulcer of buttock, stage 2: Laterality: unspecified laterality Qualified Codes: L89.302 - Pressure ulcer of unspecified buttock, stage 2 REENA REHMAN MD Jan 06, 2019 08:56
--- NOTE | 2019-01-06 08:58 | Pharmacy Note ---
Vancomycin Management Note Vanco Dosing Note Patient is on vancomycin for Decubitus ulcer of the buttocks, pharmacy monitoring and adjusting doses. Antimicrobials: Vancomycin 1250 mg every 12 hours- Start date: 01/02/2019 Primaxin 400 mg Q 6HR- Start date: 01/02/2019 Culture Results: WOUND N/A Assessment: Renal function is Stable. Random level today is 21.47 mcg/ml from 23.64 mcg/ml yesterday. Patient received one dose of 1250 mg and level is decreasing. Vancomycin Monitoring Assessment: Goal Vancomycin Trough Level: 15-20 mcg/ml Plan: 1) Vancomycin dose: Keep current regimen of 1250 mg every 12 hours 2) Vancomycin monitoring: A level will be ordered for 01/06/19 at 1300; 1 hour before the next dose. Pharmacy will continue to monitor daily and adjust regimen as appropriate. KAMILLE MARQUES V Jan 06, 2019 08:58
[2019-01-06] MEDS: POLYETHYLENE GLYCOL 17 GM PKT PO SCH ×2 (09:00→09:19)
[2019-01-06] MEDS: TRIAMTERENE/HCTZ 37.5-25MG CAPSULE PO SCH (09:00)
[2019-01-06] MEDS: CRANBERRY EXTRACT 1 EACH CAP 1 EACH CAP PO SCH (09:00)
[2019-01-06] MEDS: LEVOFLOXACIN 500 MG TAB PO SCH (09:18)
[2019-01-06] MEDS: PANTOPRAZOLE SOD 40 MG TABEC PO SCH (09:18)
[2019-01-06] MEDS: guaiFENesin 600 MG TABCR PO SCH ×2 (09:18→20:19)
[2019-01-06] MEDS: LORATADINE 10 MG TAB PO SCH (09:18)
[2019-01-06] MEDS: ENOXAPARIN 40 MG/0.4ML SYR SC SCH (09:18)
[2019-01-06] MEDS: LISINOPRIL 10 MG TAB PO SCH (09:20)
[2019-01-06] MEDS: CHOLECALCIFEROL 1000 UNIT TAB PO SCH (09:20)
[2019-01-06] MEDS: NYSTATIN 100,000 U/GM PWD 15GM TP SCH ×2 (09:20→20:20)
[2019-01-06] MEDS: SERTRALINE HCL 50 MG TAB PO SCH (09:25)
[2019-01-06] MEDS: FINGOLIMOD 0.5 MG PO SCH (09:27)
--- NOTE | 2019-01-06 10:50 | NUR ---
Physical Therapy Impression Wound dimensions remain the same as eval. Sure prep and marathon applied to periwound areas to ensure best skin protection and improved chance of gaining a seal with wound vac drape. Black simplace granufoam placed into depth of ischical wound and bridged to sacral wound. Bolster for trac pad placed just lateral to ischial wound and good seal obtained with drape and settings at 125mmHg continuous. While attempting to gain seal, pt experienced further loose stool, however, seal was successful and wound remained clean. After completion of wound vac application pt continued to experience loose stool and PT assisted with clean up to ensure that seal was not disrupted during repositioning and pericare. Physical Therapy Goals Patient's Goals
[2019-01-06 11:03] VITALS: BP 101/58
[2019-01-06] MEDS: BACLOFEN 10 MG TAB PO PRN ×2 (12:34→20:19)
[2019-01-06] MEDS: traMADol 50 MG TAB PO PRN ×2 (12:34→19:36)
--- NOTE | 2019-01-06 14:19 | Pharmacy Note ---
Vancomycin Management Note Vanco Dosing Note Vancomycin Management Note Vanco Dosing Note Patient is on vancomycin for Decubitus ulcer of the buttocks, pharmacy monitoring and adjusting doses. Antimicrobials: Vancomycin 1250 mg every 12 hours- Start date: 01/02/2019 Levaquin 500 mg po qday Start date: 01/06/19 Culture Results: WOUND N/A Assessment: Renal function is Stable. Random level today is 21.47 mcg/ml from 23.64 mcg/ml yesterday. Today 22.80. Vancomycin Monitoring Assessment: Goal Vancomycin Trough Level: 15-20 mcg/ml Plan: 1) Vancomycin dose: Change Vancomycin to 1.25 gm IV q18h 2) Vancomycin monitoring: A level will be ordered for 01/07/19 at 1100; 1 hour before the next dose. Pharmacy will continue to monitor daily and adjust regimne.Jan 06, 2019 08:58 MARSHALL WESTBROOK Jan 06, 2019 14:19
[2019-01-06 15:31] VITALS: BP 94/52
[2019-01-06 19:45] VITALS: BP 95/55
[2019-01-06] MEDS: ATORVASTATIN 10 MG TAB PO SCH (20:19)
[2019-01-06] MEDS: OXYBUTYNIN CHL XL 5 MG TABCR PO SCH (20:19)
[2019-01-06 23:06] VITALS: BP 87/51
[2019-01-07 02:19] VITALS: BP 94/52
[2019-01-07] MEDS: traMADol 50 MG TAB PO PRN ×3 (02:21→15:11)
[2019-01-07] MEDS: MORPHINE 2 MG/ML SYR IVP PRN ×2 (03:13→10:43)
[2019-01-07] MEDS: ALBUTEROL/IPRATROPIUM 3 ML NEB NEB SCH ×2 (05:24→11:30)
[2019-01-07] MEDS: BACLOFEN 10 MG TAB PO PRN ×2 (06:10→13:52)
[2019-01-07] MEDS ORDERED: LEVO-85 PO (06:32)
--- NOTE | 2019-01-07 06:37 | Short(Outpt) Discharge Summary ---
Discharge Summary Reason for Hosp/Final Diag: (1) Decubitus ulcer of buttock, stage 3 Status: Chronic Hospital Course & Plan: 01/02/19: Patient is admitted to the hospital. We'll have her moved to an air mattress and frequently turn her. Will ask the wound care team to consult and will have case management evaluate her for her long-term inpatient placement as well. She is failing continued management at home as evidenced by these advanced decubiti. She requires inpatient intensive wound care as well as staffing to frequently change her positions to avoid pressure in any one area for very long. These will never heal and in fact will get worse if she continues her current course at home. She seems agreeable with this although she does state that she does not want to go to [facility] as she has been there before. We'll relay this to the case management team. 01/03/19: cont abx. wound vac being placed. some debridement needed in at least one of the wounds. will attempt to do this at bedside, wound vac. 01/04/19: no acute events. cont abx and wound vac. long-term inpt placement soon. 01/05/19: Doing well. Wound vac in place. Will send over to [facility] when they have a wound vac available for her, hopefully today or tomorrow. Continue Abx. 01/06/19: Doing well. Continue wound vac placement. To [facility] when wound vac available there. Continue abx (switched from imipenum to levaquin) for 7 more days after discharge. 01/07/19: Doing well. Will transfer to [facility] for further wound care and nursing care to avoid pressure to buttocks. Pt needs to be on air matress and frequently turned in order for these decubiti to heal. (2) Decubitus ulcer of buttock, stage 2 Status: Chronic (3) Multiple sclerosis Status: Chronic (4) Wheelchair bound Status: Chronic Departure Discharge to[facility]charge Instructions Home Meds Active Scripts Levofloxacin 500 Mg Tab (LEVAQUIN 500 MG TAB) 500 Mg Tablet, 1 TAB PO QDAY, #7 TAB 0 Refills Give once a day for 7 days starting day after admission to [facility]. Prov:REENA REHMAN MD 01/07/19 Sertraline Hcl (SERTRALINE HCL) 50 Mg Tablet, 150 MG PO QDAY, #90 TAB Prov:PASHA CRISTINA MD 03/19/16 Triamterene/Hydrochlorothiazid (TRIAMTERENE-HCTZ 37.5-25 MG TB) 1 Each Tablet, 1 EACH PO QDAY, #30 TAB Prov:PASHA CRISTINA MD 03/19/16 Lisinopril (LISINOPRIL) 10 Mg Tablet, 10 MG PO QDAY, #30 TAB Prov:PASHA CRISTINA MD 03/19/16 Fingolimod (GILENYA) 0.5 Mg Cap, 0.5 MG PO QDAY, #30 CAP Prov:PASHA CRISTINA MD 02/29/16 Loratadine (CLARITIN) 10 Mg Tablet, 10 MG PO DAILY, #30 TAB Prov:PASHA CRISTINA MD 02/29/16 Cholecalciferol (Vitamin D3) (VITAMIN D-3) 2,000 Unit Capsule, 2000 UNIT PO DAILY, #30 CAPSULE Prov:PASHA CRISTINA MD 02/29/16 Cranberry Extract (Cranberry) 500 Mg Tablet, 1000 MG PO DAILY, #60 TAB Prov:PASHA CRISTINA MD 02/29/16 Reported Medications Tramadol Hcl (TRAMADOL HCL) 50 Mg Tablet, 50 MG PO Q6H PRN for PAIN, TAB 01/02/19 Dexlansoprazole (DEXILANT) 60 Mg Cap.mp, 60 MG PO QDAY 01/02/19 Miconazole/Cleanser 17 On Wipe (Miconazole 3 Combo Pack) 4 % (200 Mg)-2 % (9 Gram) Kit, 1 MARLENA TP BID PRN for RASH 01/02/19 Baclofen (LIORESAL INTRATHECAL) 50 Mcg/1 Ml Ampul, 39.81 MCG IT QDAY 01/02/19 Docusate Sodium (ENEMEEZ) 283 Mg Supp, 283 MG RI Mon,Wed,Fri, SUPP 01/02/19 Guaifenesin/Dextromethorphan (MUCINEX DM ER 1,200-60 MG TAB) 1 Each Tbmp.12hr, 1 EACH PO Q12H 01/02/19 Sumatriptan Succinate (IMITREX) 50 Mg Tablet, 50 MG PO Q2H PRN for MIGRAINE 01/02/19 Polyethylene Glycol 1450 (POLYETHYLENE GLYCOL 1450) 10,000 Gm Powder, 17 GM PO QDAY 01/02/19 Oxybutynin Chloride (OXYBUTYNIN CHLORIDE ER) 15 Mg Tab.er.24, 15 MG PO QDAY, TAB.SA 01/02/19 Baclofen (BACLOFEN) 10 Mg Tablet, 20-30 MG PO TID PRN for SPASMS, #30 TAB 01/02/19 Atorvastatin Calcium (LIPITOR) 20 Mg Tablet, 1 TAB PO QHS, TAB 01/02/19 Discontinued Reported Medications Triamterene/Hydrochlorothiazid (MAXZIDE 37.5 MG-25 MG TABLET) 1 Each Tablet, 1 EACH PO QDAY 01/02/19 Oxybutynin Chloride (DITROPAN XL) 10 Mg Tab.er.24, 20 MG PO QHS, TAB 03/13/16 Guaifenesin (MUCINEX) 600 Mg Tablet.er, 600 MG PO BID 03/13/16 Baclofen (Lioresal Intrathecal) 500 Mcg/Ml/Kit Kit, 300 MCG IT PT ON BACLOFEN PUMP 11/20/10 Discontinued Scripts Levofloxacin 750 Mg Tab (LEVOFLOXACIN 750 MG TAB) 750 Mg Tablet, 750 MG PO QDAY@10, #2 TAB Prov:PASHA CRISTINA MD 10/08/16 Pantoprazole Sodium (PANTOPRAZOLE SODIUM) 40 Mg Tablet.dr, 40 MG PO QDAY, #30 TAB Prov:APSHA CRISTINA MD 03/19/16 Bisacodyl (BISAC-EVAC) 10 Mg Supp.rect, 10 MG RI PRN PRN for CONSTIPATION, #30 SUPP.RECT Prov:PASHA CRISTINA MD 03/19/16 Baclofen (BACLOFEN) 10 Mg Tablet, 30 MG PO TID PRN for muscle spasm, #90 TAB Prov:PASHA CRISTINA MD 03/19/16 Atorvastatin Calcium (LIPITOR) 10 Mg Tablet, 20 MG PO QHS, #30 TAB Prov:PASHA CRISTINA MD 03/19/16 Follow up Referrals: General Surgery - 01/21/19 @ Surgery, General with REENA REHMAN MD Anne has a follow up appointment scheduled with Dr. Rehman on 01/21/19, at 4:00pm in the [facility] Diet: Regular Special Instructions: Anne should be on an air mattress and frequently repositioned every hour and avoid pressure on her buttocks. Will continue with wound vac dressings to deeper ulcers. Problem Qualifiers (1) Decubitus ulcer of buttock, stage 3: Laterality: left Qualified Codes: L89.323 - Pressure ulcer of left buttock, stage 3 (2) Decubitus ulcer of buttock, stage 2: Laterality: unspecified laterality Qualified Codes: L89.302 - Pressure ulcer of unspecified buttock, stage 2 REENA REHMAN MD Jan 07, 2019 06:36
[2019-01-07] MEDS: ENOXAPARIN 40 MG/0.4ML SYR SC SCH (08:32)
[2019-01-07] MEDS: LORATADINE 10 MG TAB PO SCH (08:33)
[2019-01-07] MEDS: SERTRALINE HCL 50 MG TAB PO SCH (08:33)
[2019-01-07] MEDS: CHOLECALCIFEROL 1000 UNIT TAB PO SCH (08:33)
[2019-01-07] MEDS: PANTOPRAZOLE SOD 40 MG TABEC PO SCH (08:33)
[2019-01-07] MEDS: TRIAMTERENE/HCTZ 37.5-25MG CAPSULE PO SCH (08:33)
[2019-01-07] MEDS: guaiFENesin 600 MG TABCR PO SCH (08:33)
[2019-01-07] MEDS: LISINOPRIL 10 MG TAB PO SCH (08:34)
[2019-01-07] MEDS: FINGOLIMOD 0.5 MG PO SCH (08:36)
[2019-01-07] MEDS: NYSTATIN 100,000 U/GM PWD 15GM TP SCH (08:37)
[2019-01-07] MEDS: POLYETHYLENE GLYCOL 17 GM PKT PO SCH (08:37)
[2019-01-07] MEDS: CRANBERRY EXTRACT 1 EACH CAP 1 EACH CAP PO SCH (08:37)
[2019-01-07 08:40] VITALS: BP 85/46
[2019-01-07] MEDS: LEVOFLOXACIN 500 MG TAB PO SCH (10:39)
[2019-01-07 12:07] VITALS: BP 75/39
[2019-01-07 12:09] VITALS: BP 89/43
[2019-01-07] MEDS: VANCOMYCIN(*) 1 GM VIAL 1 GM, VANCOMYCIN (*) 0.5 GM VIAL 0.25 GM in NS(*) 0.9% 250 ML B... IVPB SCH (12:20)
[2019-01-07 15:14] VITALS: BP 106/71
--- NOTE | 2019-01-07 16:14 | NUR ---
Physical Therapy Impression Pt to be discharged to [facility] today. Nursing is aware that they are to leave the dressing intact, as [facility] has a KCI vac available and can re-connect upon her arrival. Our KCI machine will be returned to Materials managment and nursing supervisor stripping is to call [facility] to discontinue charges for this unit upon discharge. Physical Therapy Goals Patient's Goals
== END 2019-01-07 15:45 | DRG 594 ==
LOC: ER 21:25 → MED 23:28
PROVIDERS: ADMIT Surgery; ATTEND Surgery
PROC: 02HV33Z Insertion of Infusion Device into Superior Vena Cava, Percutaneous Approach (ICD-10-PCS; principal; 2019-01-05)
PROC: B548ZZA Ultrasonography of Superior Vena Cava, Guidance (ICD-10-PCS; 2019-01-05)
DX: L89.323 Pressure ulcer of left buttock, stage 3 (principal); L89.312 Pressure ulcer of right buttock, stage 2; L89.152 Pressure ulcer of sacral region, stage 2; G35 Multiple sclerosis; R09.02 Hypoxemia; I10 Essential (primary) hypertension; N31.9 Neuromuscular dysfunction of bladder, unspecified; Z99.3 Dependence on wheelchair; Z87.891 Personal history of nicotine dependence; Z91.040 Latex allergy status
CPT/HCPCS: 36415; 36573; 71045; 80202; 81001; 82040; 82247; 82310; 82374; 82435; 82565; 82947; 83605; 84075; 84132; 84155; 84295; 84450; 84460; 84520; 85025; 87040; 87077; 87088; 87186; 87502; 93005; 94640; 96360; 97163; 97605; 97606; 99284; A4371; C1751; J0743; J1650; J2270; J2543; J3370; J7030; J7050; J7120

== ENCOUNTER → 2019-01-01 | Outpatient (CLI) | payer MEDICARE, MEDICAID ==
[~2019-01-01] MED LIST changes: +BACL50AM IT; +GUAI1TBM PO; +MICO1COM TP; +OXYB15TA14 PO; +SUMA50TA34 PO; +TRAM-420 PO; +TRIA-19 PO; +[UNRECOGNIZED DRUG - CODE] PO; +[UNRECOGNIZED DRUG - OTHER] PR
[2019-01-02 09:44] VITALS: BMI 41.0
== END ==
LOC: AMB 20:57
PROVIDERS: ATTEND Nurse Practitioner
DX: R06.02 Shortness of breath (principal); I95.9 Hypotension, unspecified; Z74.01 Bed confinement status
CPT/HCPCS: A0425; A0427

== ENCOUNTER → 2019-01-27 | Outpatient (REF) | payer MEDICARE, MEDICAID ==
[2019-01-02 09:44] VITALS: BMI 41.0
[~2019-01-27] MED LIST changes: +BACL50AM IT; +GUAI1TBM PO; +MICO1COM TP; +OXYB15TA14 PO; +SUMA50TA34 PO; +TRAM-420 PO; +TRIA-19 PO; +[UNRECOGNIZED DRUG - CODE] PO; +[UNRECOGNIZED DRUG - OTHER] PR
== END ==
LOC: ZZLCC 09:00
PROVIDERS: ATTEND Family Medicine
DX: L89.154 Pressure ulcer of sacral region, stage 4 (principal)
CPT/HCPCS: 82310; 82374; 82435; 82565; 82947; 84132; 84295; 84520; 85027

== ENCOUNTER → 2019-02-21 | Outpatient (REF) | payer MEDICARE, MEDICAID ==
[2019-01-02 09:44] VITALS: BMI 41.0
== END ==
LOC: ZZLCC 23:03
PROVIDERS: ATTEND Family Medicine
DX: N39.0 Urinary tract infection, site not specified (principal); B96.89 Other specified bacterial agents as the cause of diseases classified elsewhere
CPT/HCPCS: 81001; 87088

== ENCOUNTER → 2019-03-08 | Outpatient (CLI) | payer MEDICARE, MEDICAID ==
[2019-01-02 09:44] VITALS: BMI 41.0
== END ==
LOC: AMB 11:32
PROVIDERS: ATTEND Nurse Practitioner
DX: R06.00 Dyspnea, unspecified (principal); Z74.01 Bed confinement status
CPT/HCPCS: A0425; A0428

== ENCOUNTER → 2019-03-08 | Outpatient (CLI) | payer MEDICARE, MEDICAID ==
[2019-01-02 09:44] VITALS: BMI 41.0
--- NOTE | 2019-03-08 12:42 | RADIOLOGY IMAGING REPORT ---
FACILITY: [facility] PATIENT NAME: Anne Penn : 1965 MR: [id number] V: [id number] EXAM DATE: ORDERING PHYSICIAN: JOBY OLIVEIRA TECHNOLOGIST: Location: [facility] [place] Patient: Anne Penn : 1965 Visit/Account:[id number] Date of Sevice: 03/08/2019 Examination: CHEST PA AND LAT Comparison: 01/01/2019. History: Cough. Findings: Allowing for rotation on the current study, cardiac and hilar contour size is favored to be within normal limits and unchanged. Bilateral infrahilar lower lung streaky density is unchanged. No definite new or enlarging consolida tion or nodule. No pneumothorax, edema, or effusion. Osseous structures are intact. IMPRESSION: Bilateral infrahilar streaky density is unchanged. This is suggestive of volume loss although correl ation with any evidence of an acute versus chronic bronchitis or potentially aspiration is recommende d. Report Dictated By: Keyur Cortes MD at 03/08/2019 12:35 PM Report E-Signed By: Keyur Cortes MD at 03/08/2019 12:37 PM [id number]
== END ==
LOC: RAD 11:49
PROVIDERS: ATTEND Family Medicine
DX: R05 Cough (principal)
CPT/HCPCS: 71046

== ENCOUNTER → 2019-04-13 | Outpatient (REF) | payer MEDICARE, MEDICAID ==
[2019-01-02 09:44] VITALS: BMI 41.0
[~2019-04-13] MED LIST changes: +CALC-168 PO; -CALC-652 PO
== END ==
LOC: ZZLCC 18:06
PROVIDERS: ATTEND Family Medicine
DX: R30.0 Dysuria (principal)
CPT/HCPCS: 81001; 87088

== ENCOUNTER → 2019-06-24 | Outpatient (REF) | payer MEDICARE, MEDICAID ==
[2019-01-02 09:44] VITALS: BMI 41.0
== END ==
LOC: ZZLCC 06:55
PROVIDERS: ATTEND Family Medicine
DX: G35 Multiple sclerosis (principal); Z79.899 Other long term (current) drug therapy
CPT/HCPCS: 85027